=== PATIENT | male | born 1985 | race African-American/Black ===

== ENCOUNTER 2023-10-20 17:19 | Emergency (ER) | payer SELFPAY ==
[2023-10-20 17:21] VITALS: BP 135/100; PULSE 80; RESP 16; TEMP 36.3; O2SAT 100; BMI 19.5
--- NOTE | 2023-10-20 18:13 | EX.ED.DYSGE1 ---
HPI History of Present Illness Chief Complaint: Abn Labs Narrative Narrative: Patient speaks limited Hungarian, and requires a American Creole american sign language interpreter. He relates history that he was seen by primary care provider today, where they john blood, and told him that he will require additional blood work. He is not to return for the next few weeks until early October. He had complained to them that he feels weak and has so for the last 3 weeks, and sometimes when he tries to lift things, his arms get weak. He states that he went home from his doctor's appointment earlier in the afternoon, and he was told that he needed to report directly to the emergency department because one of his labs was abnormal . He does not recall which and states that they did not tell him what lab was abnormal and that he just did not immediately needed to report to the emergency department. [facility] Medical History no medical history Home Medications metformin 500 mg tablet 500 mg PO DAILY #14 tabs 10/20/23 [Rx Last Taken Unknown] Allergy/AdvReac Type Severity Reaction Status Date / Time Unable to Assess Allergy Verified 10/20/23 17:21 Social History Smoking Status: Never smoker ROS ROS ED ROS Narrative Constitutional: No fever, no chills. HEENT: No sore throat. No neck pain. No loss of vision. No rhinorrhea. Cardiovascular: No chest pain. No palpitations. No pedal edema. Respiratory: No cough, no shortness of breath. Abdominal: No abdominal pain. No nausea. No vomiting. Genitourinary: No dysuria. No hematuria. Musculoskeletal: No myalgias. No arthralgias. Neurologic: No headaches. No dizziness. No lightheadedness. Bilateral arm weakness when lifting x 3 weeks. Skin: No rash. No change in color. Psychiatric: No depression. No anxiety. EXAM Physical Exam Narrative Exam Narrative: Afebrile. Vital signs noted. HEENT: Normocephalic. Atraumatic. PERRL, EOMI. Neck soft and supple. No point tenderness or step off. Cardiovascular: Regular rate and rhythm. No murmurs, rubs, or gallops appreciated. Respiratory: No tachypnea. Lungs clear to auscultation bilaterally. Gastrointestinal: Abdomen soft, nontender, with normoactive bowel sounds. No rebound or guarding. Neurological: Awake. Alert. Nonfocal, nonlateralizing. Skin: No rash. Normal color. No pallor. Musculoskeletal: No pedal edema. Full range of motion extremities. Const Vital Signs: 10/20/23 17:21 10/20/23 17:58 10/20/23 21:19 Temperature 97.3 F L Temperature Source Temporal Pulse Rate 80 81 Respiratory Rate 16 16 Respiratory Effort Normal Non-Labored Respiratory Pattern Normal Blood Pressure 135/100 H 134/78 H Blood Pressure Mean 111 96 Pulse Ox 100 98 Oxygen Delivery Method Room Air MDM MDM MDM Narrative Medical decision making narrative: Patient presents with paperwork that he is supposed to be having some imaging studies/EMGs, and other laboratory work. I am unable to access the [facility] records at this time. He was told that we will perform screening labs in the form of CBC and CMP here to look for any acute abnormality that would need to be treated or warrant him reportedly being told to come to the emergency department. He has a normal pulse here and pulse ox is 100% on room air, and he is afebrile. Currently I do not feel any imaging is indicated. I reviewed his laboratory work and he has normal white count of 5.1, hemoglobin slightly hemoconcentrated at 17.1, platelet count normal at 252. In review of his CMP, his glucose is elevated at 357. I do feel this is probably the reason why he was sent to the emergency department for abnormal labs. Sodium is slightly low at 133 but I think this is secondary to hyperglycemia. Potassium is normal at 3.9, BUN normal at 14 with creatinine 1.02, and he has a normal anion gap of 5. I do not think that he is in diabetic ketoacidosis. He was administered a bolus of normal saline. Given his elevated blood sugars, with further history taking he denies any polyuria or polydipsia but states he may have blurred vision in the mornings when he wakes up. He was given his first dose of metformin here in the emergency department. I wrote him prescription for 14 tablets to take once a day until he follows up with his primary care provider. I attempted to page the nurse practitioner, but did not receive a call back. He has the phone number to the office and I instructed him to call tomorrow to see if they would like to increase his dosage to 500 mg twice a day or to follow-up with him in regards to his visit today for hyperglycemia. Disposition is discharged home in stable condition. Return instructions were reviewed. Patient is in stable condition. All questions were answered. History & Record Review Discussion w/independent historian: Patient Lab Data Attestation: I reviewed the patient's lab results. Labs: Laboratory Results - last 24 hr 10/20/23 10/20/23 18:25 21:12 WBC 5.1 RBC 5.59 Hgb 17.1 H Hct 49.2 MCV 88.0 MCH 30.6 MCHC 34.8 RDW Std Deviation 37.5 RDW Coeff of Jas 11.7 Plt Count 252 MPV 10.3 Immature Gran % (Auto) 0.200 Neut % (Auto) 49.1 Lymph % (Auto) 39.2 [place] % (Auto) 10.3 H Eos % (Auto) 0.2 Baso % (Auto) 1.0 Absolute Neuts (auto) 2.5 Absolute Lymphs (auto) 1.98 Nucleated RBC % 0 Sodium 133 L Potassium 3.9 Chloride 100 Carbon Dioxide 28.0 Anion Gap 5 BUN 14 Creatinine 1.02 Estim Creat Clear Calc 93.24 Est GFR (MDRD) Af Amer 105 Est GFR (MDRD) Non-Af 87 BUN/Creatinine Ratio 13.7 Glucose 357 H Calcium 10.0 Total Bilirubin 0.80 AST 15 ALT 26 Alkaline Phosphatase 142 H Total Protein 8.6 H Albumin 4.2 Globulin 4.4 H Albumin/Globulin Ratio 1.0 POC Glucose 224 H Discharge Plan Triage Chief Complaint: Abn Labs ED Provider: Leobardo Harper Dx/Rx/DC Orders Clinical Impression: Diabetes, Elevated blood sugar Instructions: ED Diabetes- Overview, ED Hyperglycemia New Poss Diabetes Prescriptions: New metformin 500 mg tablet 500 mg PO DAILY Qty: 14 0RF Primary Care Provider: Yanira Moore NP Referrals: Yanira Moore NP, [employer] [Primary Care Provider] - 1 Day Activity Restrictions/Additional Instructions: Call the nurse practitioner tomorrow. Let her know that you had elevated blood sugar and were started on metformin once a day. Disposition Disposition: Home, Self Care Discharge Date/Time: 10/20/23 21:21
[2023-10-20 18:34] LABS: Absolute Lymphocyte Count 1.98 X10^3/uL (0.83-4.51); Absolute Neutrophil Count 2.5 X10^3/uL (2.0-7.7); Basophil# 0.05 X10^3/uL; Eosinophil# 0.01 X10^3/uL; Eosinophils% 0.2 % (0-5); Hematocrit 49.2 % (40-54); Hemoglobin 17.1 g/dL (13.0-16.5); Lymphocyte # 1.98 X10^3/ul (0.83-4.51); Lymphocyte % 39.2 % (19-41); Mean Corp Hgb Conc 34.8 g/dL (32-36); Mean Corpuscular Hgb 30.6 pg (27.0-32.0); Mean Platelet Vol. 10.3 fl (6.2-12.0); Monocyte# 0.52 X10^3/uL; Monocyte% 10.3 % (0-10); NRBC Flagged by Analyzer 0 % (0-5); Neutrophil # 2.48 X10^3/uL (2.7-7.7); Neutrophil % 49.1 % (47-70); Platelet Count 252 K/mm3 (150-450); RBC Distribution Width CV 11.7 % (11.6-14.6); RBC Distribution Width SD 37.5 fl (35.1-43.9); Red Blood Count 5.59 M/mm3 (4.6-6.2); White Blood Count 5.1 K/mm3 (4.4-11.0)
[2023-10-20 18:53] LABS: AST(SGOT) 15 U/L (15-37); Alanine Aminotransfer ALT/SGPT 26 U/L (16-61); Albumin, Serum 4.2 g/dL (3.2-5.0); Alkaline Phosphatase 142 U/L (45-117); Anion Gap 5 (5-15); BUN 14 mg/dL (7-18); BUN/Creat Ratio 13.7 RATIO (10-20); Chloride 100 mmol/L (98-107); Creatinine, Serum 1.02 mg/dL (0.70-1.30); EST Glomerular Filtration Rate 87 mL/min (>60); Est Glom Filt Rate - Afr Amer 105 mL/min (>60); Estimated Creatinine Clearance 93.24 ml/min; Globulin 4.4 g/dL (2.2-4.2); Glucose 357 mg/dL (74-106); Potassium 3.9 mmol/L (3.5-5.1); Protein, Total 8.6 g/dL (6.4-8.2); Sodium Level 133 mmol/L (136-145)
[2023-10-20] MEDS: 0.9% Normal Saline (1000mL) 1,000 ML 999 ML IV (19:14)
[2023-10-20] MEDS: metFORMIN HCl 500 MG Tablet PO (21:13)
[2023-10-20 21:19] VITALS: BP 134/78; PULSE 81; RESP 16; O2SAT 98
--- NOTE | 2023-10-20 21:24 | ED.RN ---
PT SPEAKS LIMITED UKRAINIAN, ABLE TO COMMUNICATE WITHOUT ASSISTANT DIRECTOR OF SECURITY TABLET FOR DISCHARGE AFTER SPEAKING WITH MD AGAIN.
[2023-10-20 21:32] LABS: Bedside Glucose 224 mg/dL (74-106)
== END 2023-10-20 21:21 | disposition home or self-care (01) ==
PROVIDERS: Emergency Provider Emergency Medicine; PCP Nurse Practitioner Family; Visit Provider Emergency Medicine
DX: E11.65 Type 2 diabetes mellitus with hyperglycemia (principal)
CPT/HCPCS: 80053; 82962; 85025; 96360; 96361; 99282; J7030; A4216

== ENCOUNTER 2025-02-26 02:25 | Emergency (ER) | payer SELFPAY ==
[2025-02-26 02:44] VITALS: BP 147/99; PULSE 77; RESP 16; TEMP 36.9; O2SAT 99; BMI 17.3
--- NOTE | 2025-02-26 02:57 | EX.ED.DYSGE1 ---
HPI History of Present Illness Chief Complaint: General Illness Narrative Narrative: Patient is a 39-year-old male who presents to the emergency department with a chief complaint of generalized weakness and not feeling well since Thursday. He states that he feels very weak and states that his son has been ill since Thursday as well. He states that in the past he was told that his sugar is very very high and he states that he was following with a doctor however his insurance changed and he could no longer see that doctor anymore therefore he has not been on any medications for this. Patient states that he is constantly thirsty and frequently urinates Professional translator interpreter service used [facility] Medical History Hyperglycemia Home Medications ?Medication ?Instructions ?Recorded ?Last Taken ?Type metformin 500 mg tablet 500 mg PO BID 30 days #60 tabs 02/26/25 Unknown Rx Allergy/AdvReac Type Severity Reaction Status Date / Time Unable to Assess Allergy Verified 02/26/25 02:27 Social History Smoking Status: Never smoker ROS ROS ED ROS Narrative Constitutional: Denies fevers, chills, headaches Eyes: Denies change in vision double vision blurry vision Cardiovascular: Denies chest pain Respiratory: Denies cough or wheezing shortness of breath Abdomen: Denies abdominal pain nausea vomit diarrhea : States that he urinates frequently as noted above but denies any blood in his urine or painful urination Neurological: Complains of generalized weakness denies numbness or tingling Musculoskeletal: Denies back pain Skin: Denies rashes or lesions EXAM Physical Exam Narrative Exam Narrative: General: Patient lying in bed rest comfortably did not appear to be acute distress Head: Atraumatic, normocephalic Eyes: PERRL bilaterally, EOMI bilateral, no conjunctival injection noted Neck: Soft, supple, trachea midline Cardiovascular: Regular rate and rhythm no murmurs gallops rubs noted Respiratory: Clear to auscultation bilaterally Abdomen: Soft, nondistended, nontender to palpation Extremities: +5/5 strength noted in the bilateral upper and lower extremities, radial pulses +2/4 in the bilateral extremities Neurological: Patient follow commands knew that he was at [facility] year is 2024 Skin: Warm, dry, intact no rashes or lesions noted Const Vital Signs: 02/26/25 02:32 02/26/25 02:44 02/26/25 04:26 Temperature 98.5 F Temperature Source Oral Pulse Rate 77 78 Respiratory Rate 16 16 Respiratory Effort Normal Non-Labored Respiratory Pattern Normal Blood Pressure 147/99 H 137/95 H Blood Pressure Mean 115 109 Pulse Ox 99 98 Oxygen Delivery Method Room Air Room Air 02/26/25 06:00 Temperature Temperature Source Pulse Rate 96 Respiratory Rate 16 Respiratory Effort Respiratory Pattern Blood Pressure 135/78 H Blood Pressure Mean 97 Pulse Ox 100 Oxygen Delivery Method Room Air MDM MDM MDM Narrative Medical decision making narrative: Patient is a 39-year-old male who presents to the Emergency Department with chief complaint of generalized weakness and not feeling well. On the differential diagnosis includes but not limited to hyperglycemia, DKA, electrolyte abnormality, viral illness. Once workup is obtained he will be reevaluated. Patient be given IV fluids. Patient's CBC was reviewed showed a white blood count of 4.3, hemoglobin 16.1, platelet count 226. Patient's neutrophil counts [place] was 1.7, venous blood gas showed pH 7.39. Patient sodium normal 134, potassium of 4.5, creatinine normal at 1.12. Anion gap normal at 11. Patient glucose was elevated 448 he was given IV fluids and will be given 15 units subcutaneous insulin, AST and ALT are 54 and 29 respectively. Patient lipase of 26. Patient's beta hydroxybutyrate was noted to be 0.7 urinalysis showed mild ketones with thousand glucose no evidence of infection monoscreen was negative. Did discuss results with the patient he is feeling better he would like to go home at this point time. Patient will be placed on metformin and was advised to follow-up with a primary care physician outpatient setting. He is encouraged to return with worsening symptoms or concerns. He is agreeable to plan all question concerns answered he is discharged home in stable condition. Lab Data Labs: Laboratory Results - last 24 hr 02/26/25 02/26/25 02/26/25 02:48 03:20 04:21 WBC 4.3 L RBC 5.19 Hgb 16.1 Hct 46.8 MCV 90.2 MCH 31.0 MCHC 34.4 RDW Std Deviation 39.6 RDW Coeff of Jas 12.1 Plt Count 226 MPV 11.2 Immature Gran % (Auto) 0.200 Neut % (Auto) 39.1 L Lymph % (Auto) 43.6 H [place] % (Auto) 15.2 H Eos % (Auto) 0.7 Baso % (Auto) 1.2 H Absolute Neuts (auto) 1.7 L Absolute Lymphs (auto) 1.87 Nucleated RBC % 0 Sodium 134 Potassium 4.5 Chloride 99 Carbon Dioxide 24.8 Anion Gap 11 BUN 21 H Creatinine 1.12 Estim Creat Clear Calc 74.54 Est GFR (MDRD) Non-Af 86 BUN/Creatinine Ratio 18.3 Glucose 448 H Calcium 9.8 Total Bilirubin 0.89 AST 54 H ALT 29 Alkaline Phosphatase 115 Total Protein 7.8 Albumin 4.3 Globulin 3.6 Albumin/Globulin Ratio 1.2 Lipase 26 b-Hydroxybutyric mmol/L 0.7 Urine Color Straw Urine Clarity Clear Urine pH 6.0 Ur Specific [place] 1.015 Urine Protein Negative Urine Glucose (UA) 1000 H Urine Ketones 5 H Urine Occult Blood Negative Urine Nitrite Negative Urine Bilirubin Negative Urine Urobilinogen Normal Ur Leukocyte Esterase Negative Urine RBC 0 SEEN Urine WBC 0-5 SEEN Ur Squamous Epith Cells 0 SEEN Urine Bacteria RARE Urine Mucus RARE Monoscreen Negative ABG Data ABG results: ABG 02/26/25 03:42 Specimen Type MARIAELENA Sample Site Not entered VBG pH 7.39 VBG pO2 26 VBG HCO3 28 H VBG Total CO2 30 VBG O2 Sat (Calc) 46 L VBG Base Excess 3 POC Mix VBG pCO2 Pt Tmp 46.7 O2 Delivery Device Room Air Discharge Plan Triage Chief Complaint: General Illness ED Provider: Robert Castillo Dx/Rx/DC Orders Clinical Impression: Hyperglycemia Instructions: Blood Sugar Check Steps, Diabetes- Measuring Glucose at Home Prescriptions: New metformin 500 mg tablet 500 mg PO BID 30 Days Qty: 60 0RF Primary Care Provider: Yanira Moore NP Referrals: Yanira Moore NP, [employer]ANT[facility] [Primary Care Provider] - Lisa Link [facility] [employer] CONSULTANT[facility] [[facility]] - Activity Restrictions/Additional Instructions: Your glucose once again was high. Follow-up with the primary care physician that you referred to. Take the medication that was sent to your pharmacy as prescribed this can give you diarrhea. Return with worsening symptoms or concerns. Follow-up on your A1c with your doctor as well. Print Language: Turkmen Creole Disposition Disposition: Home, Self Care
[2025-02-26] MEDS: 0.9% Normal Saline (1000mL) 1,000 ML 999 ML IV (03:22)
[2025-02-26 03:24] LABS: Red Blood Cells-Urine 0 SEEN /hpf (0-5); Squamous Epithelial Cells - UA 0 SEEN /hpf (0-5)
[2025-02-26 03:25] LABS: Absolute Lymphocyte Count 1.87 X10^3/uL (0.83-4.51); Absolute Neutrophil Count 1.7 X10^3/uL (2.0-7.7); Basophil# 0.05 X10^3/uL; Basophil% 1.2 % (0-1); Eosinophil# 0.03 X10^3/uL; Eosinophils% 0.7 % (0-5); Hematocrit 46.8 % (40-54); Hemoglobin 16.1 g/dL (13.0-16.5); Lymphocyte # 1.87 X10^3/ul (0.83-4.51); Lymphocyte % 43.6 % (19-41); Mean Corp Hgb Conc 34.4 g/dL (32-36); Mean Corpuscular Volume 90.2 fL (80-94); Mean Platelet Vol. 11.2 fl (6.2-12.0); Monocyte# 0.65 X10^3/uL; Monocyte% 15.2 % (0-10); NRBC Flagged by Analyzer 0 % (0-5); Neutrophil # 1.68 X10^3/uL (2.7-7.7); Neutrophil % 39.1 % (47-70); Platelet Count 226 K/mm3 (150-450); RBC Distribution Width CV 12.1 % (11.6-14.6); RBC Distribution Width SD 39.6 fl (35.1-43.9); Red Blood Count 5.19 M/mm3 (4.6-6.2); White Blood Count 4.3 K/mm3 (4.4-11.0)
[2025-02-26 03:38] LABS: Lipase 26 U/L (13-75)
[2025-02-26 03:47] LABS: Blood Gas Specimen Type VEN; O2 Delivery Device Room Air; SITE Not entered; VBG BASE EXCESS 3 mmol/L (-1.0-3.5); VBG Bicarbonate 28 mmol/L (22-26); VBG PO2 26 mmHg (25-40); VBG SO2 46 % (50-70); VBG TCO2 30 mmol/L (23-33); VBG pCO2 46.7 mmHg (41-51); VBG pH 7.39 (7.32-7.42)
[2025-02-26 03:55] LABS: Color, Urine Straw (Yellow); Glucose, Dipstick 1000 mg/dl (Normal); Ketone-Dipstick 5 mg/dl (Negative); Leukocyte Esterase-Dipstick Negative /ul (Negative); Nitrite-Dipstick Negative (Negative); Occult Blood-Urine Negative /ul (Negative); Protein-Dipstick Negative (Negative); Specific Gravity, Urine 1.015 (1.002-1.030); Urine Bilirubin Dipstick Negative (Negative); Urine Clarity Clear (Clear); Urine Urobilinogen Normal (Normal)
[2025-02-26 04:16] LABS: Bacteria RARE /hpf (None Seen); Mucous, Urine RARE /hpf (<or=2+); White Blood Cells 0-5 SEEN /hpf (0-5)
[2025-02-26 04:26] VITALS: BP 137/95; PULSE 78; RESP 16; O2SAT 98
[2025-02-26 04:43] LABS: Internal QC Validated? YES +Cl - CLEAR BKGD; Monotest Negative (Negative)
[2025-02-26 04:44] LABS: Record Kit Lot#, Mono 13241430
[2025-02-26 05:44] LABS: ALB/GLOB Ratio 1.2 RATIO (0.9-2.4); AST(SGOT) 54 U/L (<=37); Alanine Aminotransfer ALT/SGPT 29 U/L (<=46); Albumin, Serum 4.3 g/dL (3.5-5.0); Alkaline Phosphatase 115 U/L (40-129); Anion Gap 11 (5-15); BUN 21 mg/dL (4-19); BUN/Creat Ratio 18.3 RATIO (10-20); Calcium,Total 9.8 mg/dL (7.6-11.0); Carbon Dioxide 24.8 mmol/L (21.0-32.0); Chloride 99 mmol/L (98-108); Creatinine, Serum 1.12 mg/dL (0.70-1.20); EST Glomerular Filtration Rate 86 (>60); Estimated Creatinine Clearance 74.54 ml/min (50-250); Globulin 3.6 g/dL (2.2-4.2); Glucose 448 mg/dL (70-99); Potassium 4.5 mmol/L (3.3-5.1); Protein, Total 7.8 g/dL (5.9-8.4); Sodium Level 134 mmol/L (133-145); Total Bilirubin 0.89 mg/dL (0.00-1.30)
[2025-02-26] MEDS: Insulin Lispro 100 UNIT/ML INSULN.PEN 15 UNIT SC (05:59)
[2025-02-26 06:00] VITALS: BP 135/78; PULSE 96; RESP 16; O2SAT 100
[2025-02-26 06:22] LABS: BETA-HYDROXYBUTYRATE 0.7 mmol/L (0.0-0.3)
[2025-02-26 06:55] LABS: Bedside Glucose 240 mg/dL (74-106)
[2025-02-26 07:39] LABS: Hemoglobin A1c 14.9 % (<=5.6)
== END 2025-02-26 07:04 | disposition home or self-care (01) ==
PROVIDERS: Emergency Provider Emergency Medicine; PCP Nurse Practitioner Family; Visit Provider Emergency Medicine
DX: R73.9 Hyperglycemia, unspecified (principal)
CPT/HCPCS: 80053; 81001; 82010; 82803; 82962; 83036; 83690; 85025; 86308; 87631; 96360; 96372; 99283; A4216